=== PATIENT | female | born 1995 | race Caucasian/White ===

== ENCOUNTER 2021-09-12 15:30 | Emergency (ER) | payer OTHER, SELFPAY ==
[2021-09-12 15:41] VITALS: BP 148/79; PULSE 108; RESP 18; TEMP 37.1; O2SAT 100
--- NOTE | 2021-09-12 15:55 | ED.EAR ---
HPI - Ear Problem General Chief complaint: Ear Stated complaint: ear pain Time Seen by Provider: 09/12/21 15:55 Source: patient Mode of arrival: ambulatory Limitations: no limitations History of Present Illness HPI Narrative: 26-year-old female presented for complaint of right ear pain, onset yesterday, also endorses sinus congestion for about 5 days. She takes daily Claritin and has been taking ibuprofen as needed for pain. She denies sore throat, cough, shortness of breath or wheezing, fevers or chills. She is vaccinated for COVID and flu. She denies sick contacts. MD Complaint: ear pain Related Data Home Medications Medication Instructions Recorded Confirmed drospirenone 3 mg-ethinyl 1 tablet PO DAILY 09/12/21 09/12/21 estradiol 0.02 mg tablet (STEPHEN (28)) lisinopril 5 mg tablet 1 tablet PO DAILY 09/12/21 09/12/21 loratadine 10 mg tablet (Claritin) 10 mg PO DAILY 09/12/21 09/12/21 metoprolol succinate 25 mg 1 tablet PO DAILY 09/12/21 09/12/21 tablet,extended release 24 hr Allergies Allergy/AdvReac Type Severity Reaction Status Date / Time No Known Allergies Allergy Verified 09/12/21 15:42 Review of Systems Review of Systems: CONSTITUTIONAL: Denies malaise, chills, or fever. EYES: Denies visual changes, redness, or discharge. ENT: Denies rhinorrhea, congestion, sinus pain, and sore throat. Reports ear pain CARDIOVASCULAR: Denies chest pain, palpitations, or edema. RESPIRATORY: Denies cough or dyspnea. GASTROINTESTINAL: Denies abdominal pain, nausea, vomiting, diarrhea SKIN: Denies rash or itching. MUSCULOSKELETAL: Denies myalgia. NEUROLOGIC: Denies headache. All systems reviewed & are unremarkable except as noted in HPI and below PMFSH Social History Social History Smoking status: Never smoker Alcohol intake: never Comments At time of signature, agree with nursing past medical, surgical, social and family history. There is no relevant family history pertinent to the presenting complaint Exam Narrative: GENERAL: Well-appearing HEAD: Normocephalic EYES: conjunctivae clear ENT: Nares clear. Mucous membranes moist. Right TM and canal erythematous and swollen with purulent fluid level, Left TM pearly hogan with dull light reflex; no tragal tenderness. Oropharynx not erythematous without lesions. Tonsils enlarged without exudate, no drooling, no hoarseness, no trismus, uvula midline. NECK: Supple. No lymphadenopathy CHEST: Clear to auscultation, breath sounds equal. HEART: Regular rate and rhythm. No murmur heard. SKIN: Warm, dry, no rash. NEURO: Alert and oriented x3. PSYCH: Normal mood and affect Course Course Emergency Course: Patient is aware of diagnosis, understands and agrees to treatment plan. Anticipatory guidance given. Patient agrees to follow-up as directed and is aware of reasons to seek care at the emergency department. Portions of this record may have been created with voice recognition software Level of Care: Express Care Visit Vital Signs Vital signs: Vital Signs Temperature 98.7 F 09/12/21 15:41 Pulse Rate 108 H 09/12/21 15:41 Respiratory Rate 18 09/12/21 15:41 Blood Pressure 148/79 H 09/12/21 15:41 Pulse Oximetry 100 09/12/21 15:41 Oxygen Delivery Room Air 09/12/21 15:41 Temperature 98.7 F 09/12/21 15:41 Pulse Rate 108 H 09/12/21 15:41 Respiratory Rate 18 09/12/21 15:41 Blood Pressure 148/79 H 09/12/21 15:41 Pulse Oximetry 100 09/12/21 15:41 Oxygen Delivery Room Air 09/12/21 15:41 Reviewed Medical Decision Making MDM Narrative Medical decision making narrative: PE c/w otitis media; advised supportive treatment and abx as directed. patient is non-toxic appearing and is in no distress. Patient is appropriate for outpatient treatment and follow-up. Differential Diagnosis Differential Diagnosis: otitis media, otitis externa, eustachian tube dysfunction, foreign body
== END 2021-09-12 16:07 | disposition home or self-care (01) ==
PROVIDERS: Emergency Provider Nurse Practitioner Family; PCP Physician Assistant
DX: H66.001 Acute suppurative otitis media without spontaneous rupture of ear drum, right ear (principal); I10 Essential (primary) hypertension
CPT/HCPCS: 99213; G0463